=== PATIENT | female | born 1945 | race Caucasian/White ===

== ENCOUNTER 2018-02-24 11:10 | Emergency (ER) | payer MEDICARE ==
[2018-02-24 11:21] VITALS: BP 176/79
--- NOTE | 2018-02-27 09:09 | UC ---
Soha Griggs Rebecca, scribed for Kylah Thomas DO on 02/24/18 at 1138 . Ear Complaint HPI - HPI Summary HPI Summary: Pt is a 73 y/o F who presents to [facility] due to muffled hearing since this morning. Used cooking oil to soften the cerumen. A few years ago, she has had her ears flushed to treat similar symptoms. Denies any ear pain, sore throat, HILL , N/V, CP, SOB. She has no other symptoms at this time and has a PMHx of partial deafness. PMHx HTN - forgotten to take her medication for a few days, took this morning. While in the room, a manual blood pressure was done which was 125/85. 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 - Family Onset/Duration: Still Present Severity Currently: None Pain Intensity: 0 Pain Scale Used: 0-10 Numeric Aggravating Factors: Nothing Alleviating Factors: Nothing Associated Signs/Symptoms: Positive: Hearing Loss - Muffled - Allergies/Home Medications Allergies/Adverse Reactions: Allergies Allergy/AdvReac Type Severity Reaction Status Date / Time nickel Allergy Rash Verified 02/24/18 11:22 shellfish derived Allergy Hives Verified 02/24/18 11:22 PMH/Surg Hx/FS Hx/Imm Hx - Additional Past Medical History Additional PMH: PMHx: Partial deafness Endocrine History: Diabetes - Surgical History Surgical History: Yes Surgery Procedure, Year, and Place: right shoulder surgery. back surgery - herniated discs. bilateral knee replacement - Family History Known Family History: Positive: Diabetes - Social History Alcohol Use: None Alcohol Amount: 2 PER YEAR Substance Use Type: None Smoking Status (MU): Never Smoked Tobacco Amount Used/How Often: PACK A DAY Have You Smoked in the Last Year: No When Did the Patient Quit Smoking/Using Tobacco: 35 YEARS AGO - Immunization History Most Recent Influenza Vaccination: 2014 Most Recent Tetanus Shot: UNKNOWN Most Recent Pneumonia Vaccination: 4 YRS AGO Review of Systems Constitutional: Negative Skin: Negative Eyes: Negative ENT: Other - Muffled hearing Respiratory: Negative Cardiovascular: Negative Gastrointestinal: Negative Genitourinary: Negative Motor: Negative Neurovascular: Negative Musculoskeletal: Negative Neurological: Negative Psychological: Negative All Other Systems Reviewed And Are Negative: Yes - Comments Additional Review of Systems Comments: NEGATIVE: Ear pain, sore throat, HILL, N/V, CP, SOB Physical Exam - Summary Physical Exam Summary: Appearance: Well-Appearing, No Pain Distress, Well-Nourished Eyes: conjunctiva clear, no discharge ENT: Both TM are occluded by cerumen, negative tonsillar swelling, negative tonsillar exudate, negative trismus. Neck: Normal, Supple Respiratory/Lung Sounds: Lungs clear, Normal breath sounds, No respiratory distress, No accessory muscle use Cardiovascular: RRR, No murmur Musculoskeletal: Normal Neurological: Alert, muscle tone normal Psychiatric:Normal, age appropriate behavior Skin: Normal, Warm, Dry, Normal color Triage Information Reviewed: Yes Vital Signs: Initial Vital Signs Temp 97.6 F 02/24/18 11:17 Pulse 78 02/24/18 11:17 Resp 18 02/24/18 11:17 BP 176/79 02/24/18 11:17 Pulse Ox 96 02/24/18 11:17 Vital Signs Reviewed: Yes Ear Complaint Course/Dx - Course Course Of Treatment: Pt is a 73 y/o F who presents to [facility] due to muffled hearing since this morning. In the past, she has had her ears flushed to treat similar symptoms. Denies any ear pain, sore throat, HILL, N/V, CP, SOB. She has no other symptoms at this time and has a PMHx of partial deafness. PMHx HTN - forgotten to take her medication for a few days, took this morning. While in the room, a manual blood pressure which was read as 125/85. While at [facility], her ears were irrigated. Pt will be D/C to home with Dx of cerumen impaction. Medications reviewed. Allergies reviewed. - Differential Dx/Diagnosis Provider Diagnoses: Cerumen impaction Discharge - Sign-Out/Discharge Documenting (check all that apply): Discharge/Admit/Transfer - Discharge - Discharge Plan Condition: Stable Disposition: HOME Referrals: Armin Nelson MD [Primary Care Provider] - The documentation as recorded by the Soha motley Rebecca accurately reflects the service I personally performed and the decisions made by , Kylah Thomas DO.
== END 2018-02-24 12:20 | disposition home or self-care (01) ==
LOC: UCEAST 11:10
DX: H61.23 Impacted cerumen, bilateral (principal); H91.90 Unspecified hearing loss, unspecified ear; I10 Essential (primary) hypertension; E11.9 Type 2 diabetes mellitus without complications; Z87.891 Personal history of nicotine dependence; Z91.013 Allergy to seafood; Z91.09 Other allergy status, other than to drugs and biological substances
CPT/HCPCS: 99213; G0463